=== PATIENT | male | born 1940 | race Caucasian/White ===

== ENCOUNTER 2018-04-10 08:22 | Outpatient (CLI) | payer MEDICARE, OTHER ==
[2018-04-10] MEDS ORDERED: IOPAMIDOL-300 100 ML VIAL ONE ×2 (08:53→10:49)
[2018-04-10] MEDS ORDERED: IOPAMIDOL-300 100 ML VIAL IVP ONE (11:18)
--- NOTE | 2018-04-10 15:17 | CT Report ---
Procedure Date: 04/10/2018 Accession Number: [id number] / [id number] Procedure: CT - IVP CPT Code: FULL RESULT: EXAM: IVP DATE: 04/10/2018 11:03 AM CLINICAL HISTORY: HEMATURIA, COMPARISON: None. TECHNIQUE: Routine helical imaging was performed through the kidneys, ureters and bladder in the precontrast and postcontrast phases, using split bolus technique. IV Contrast: 100 cc [id number] Reconstructions: Coronal and sagittal. In accordance with CT protocol optimization, one or more of the following dose reduction techniques were utilized for this exam: automated exposure control, adjustment of mA and/or KV based on patient size, or use of iterative reconstructive technique. FINDINGS: Lung Bases: Normal. Right Kidney/Ureter: No stones, hydronephrosis, or masses. Left Kidney/Ureter: No stones, hydronephrosis, or masses. Inferior pole simple cyst 2.5 cm in diameter. Other Solid Organs: The liver, spleen, pancreas, and adrenal glands are unremarkable. Gallbladder and the bile ducts are unremarkable. Peritoneal Cavity/Bowel: No free fluid, free air or adenopathy. No masses. Bowel loops are unremarkable. Appendix is seen and appears normal, thickness 6 mm. No periappendiceal inflammatory change. Pelvic Organs: No bladder stones, obstruction or masses. Prostate measures 4.7 x 4.5 x 3.4 cm, volume 37.6 cc, and elevates the bladder base. Vasculature: Normal. Bones: Normal. Other: None. IMPRESSION: No urinary tract masses, stones or obstruction. Simple left renal cyst. Enlarged prostate elevating the bladder base. Otherwise negative. [facility]
== END 2018-04-10 08:23 | disposition home or self-care (01) ==
LOC: DI 08:22
PROVIDERS: ATTEND Family Medicine
DX: N28.1 Cyst of kidney, acquired (principal); N40.0 Benign prostatic hyperplasia without lower urinary tract symptoms
CPT/HCPCS: 36415; 74178; 82565; Q9967

== ENCOUNTER 2020-04-19 09:25 | Outpatient (CLI) | payer MEDICARE, OTHER | END 2020-04-19 23:59 | disposition home or self-care (01) | LOC: LAB 09:25 | PROVIDERS: ATTEND Family Medicine | DX: H10.10 Acute atopic conjunctivitis, unspecified eye (principal); Z20.828 Contact with and (suspected) exposure to other viral communicable diseases | CPT/HCPCS: 81599 ==